=== PATIENT | female | born 1990 | race American Indian/Alaskan Native ===

== ENCOUNTER 2017-09-02 09:45 | Emergency (ER) | payer SELFPAY ==
[2017-09-02 10:21] VITALS: BP 102/67
== END 2017-09-02 10:45 | disposition left against medical advice (07) ==
LOC: ED 09:45
DX: R04.2 Hemoptysis (principal); Z53.21 Procedure and treatment not carried out due to patient leaving prior to being seen by health care provider

== ENCOUNTER 2017-09-14 21:00 | Outpatient (CLI) | payer MEDICAID ==
[2017-09-15 00:15] VITALS: BP 110/69
== END 2017-09-14 22:04 | disposition home or self-care (01) ==
LOC: TRG 21:00
PROVIDERS: ATTEND Obstetrics & Gynecology
DX: O47.1 False labor at or after 37 completed weeks of gestation (principal); Z3A.38 38 weeks gestation of pregnancy
CPT/HCPCS: 59025

== ENCOUNTER 2017-09-27 00:50 | Inpatient (IN) | payer MEDICAID ==
[2017-09-27] MEDS ORDERED: LACTATED RINGERS 1,000 ML ONE (01:40)
[2017-09-27] MEDS ORDERED: ePHEDrine SULFATE IV PRN (02:05)
[2017-09-27] MEDS ORDERED: MINERAL OIL PO PRN (02:05)
[2017-09-27] MEDS ORDERED: STADOL IV PRN (02:05)
[2017-09-27] MEDS ORDERED: NARCAN 0.4 MG/1 ML IV PRN (02:05)
[2017-09-27] MEDS ORDERED: XYLOCAINE 2% INFILTRATI ONE (02:05)
[2017-09-27] MEDS ORDERED: BRETHINE IVP PRN (02:05)
[2017-09-27] MEDS ORDERED: BRETHINE SUB-Q PRN (02:05)
[2017-09-27] MEDS ORDERED: POLYCILLIN/NS 2 GM/100 ML 2 GM/100 ML BAG IV ONE ×2 (02:05→02:23)
[2017-09-27] MEDS ORDERED: ZOFRAN IV PRN ×2 (02:05→03:52)
[2017-09-27] MEDS ORDERED: SUBLIMAZE IV PRN (02:05)
[2017-09-27] MEDS ORDERED: STADOL ONE (02:06)
--- NOTE | 2017-09-27 02:12 | History and Physical Report ---
History of Present Illness Date of examination: 09/27/17 Date of admission: 09/27/17 01:20 Chief complaint: Labor History of present illness: Pt is a 26yo BF EDC 09/28/17; EGA 39 6/7 weeks presents to L&D complaining of RUC's. She received care with Rajni Whitman CNM, however records are not available and GBS is unknown. Past History Past Medical History: no pertinent history Past Surgical History: no surgical history [employer] History: fibroids Social history: no significant social history, single - Obstetrical History Expected Date of Delivery: 09/28/17 Actual Gestation: 39 Week(s) 6 Day(s) : 4 Medications and Allergies Allergies Allergy/AdvReac Type Severity Reaction Status Date / Time No Known Allergies Allergy Verified 02/07/13 00:50 Home Medications Medication Instructions Recorded Confirmed Last Taken Type No Known Home Medications [No 09/14/17 09/14/17 Unknown History Reported Home Medications] Active Meds: Active Medications Butorphanol Tartrate (Stadol) 2 mg IV Q2H PRN PRN Reason: Pain , Severe (7-10) Ephedrine Sulfate (Ephedrine Sulfate) 10 mg IV Q2M PRN PRN Reason: Hypotension Fentanyl (Sublimaze) 100 mcg IV Q2H PRN PRN Reason: Labor Pain Ampicillin Sodium (Ampicillin/Ns 1 Gm/50 Ml) 1 gm in 50 mls @ 100 mls/hr IV Q4HR JAREK; Protocol Ampicillin Sodium (Polycillin/Ns 2 Gm/100 Ml) 2 gm in 100 mls @ 100 mls/hr IV ONCE ONE; Protocol Stop: 09/27/17 03:04 Lactated Ringer's (Lactated Ringers) 1,000 mls @ 125 mls/hr IV DIRECT JAREK Oxytocin/Sodium Chloride (Pitocin/Ns 20 Unit/1000ml Drip) 20 units in 1,000 mls @ 125 mls/hr IV DIRECT JAREK Oxytocin/Sodium Chloride (Pitocin/Ns 30 Unit/500ml) 30 units in 500 mls @ 4 mls /hr IV TITR JAREK; Protocol Oxytocin/Sodium Chloride (Pitocin/Ns 30 Unit/500ml) 30 units in 500 mls @ 1 mls /hr IV TITR JAREK; Protocol Lidocaine (Xylocaine 2%) 20 ml INFILTRATI ONCE ONE Stop: 09/27/17 02:06 Mineral Oil (Mineral Oil) 30 ml PO QHS PRN PRN Reason: Constipation Naloxone HCl (Narcan 0.4 Mg/1 Ml) 0.1 mg IV Q2MIN PRN PRN Reason: Res Rate </= 8 or 02 SAT < 92% Ondansetron HCl (Zofran) 4 mg IV Q8H PRN PRN Reason: Nausea And Vomiting Terbutaline Sulfate (Brethine) 0.25 mg SUB-Q ONCE PRN PRN Reason: Hyperstimulation/Hypertonicity Terbutaline Sulfate (Brethine) 0.25 mg IVP ONCE PRN PRN Reason: Hyperstimulation/Hypertonicity Review of Systems All systems: negative - Physical Exam Breasts: Positive: deferred Cardiovascular: Regular rate Lungs: Positive: Clear to auscultation Abdomen: Positive: normal appearance Genitourinary (Female): Positive: normal external genitalia Uterus: Positive: enlarged Extremities: Positive: normal - Obstetrical FHR: category 1 Uterine Contraction Monitor Mode: External Cervical Dilatation: 4 Cervical Effacement Percentage: 70 station: -2 Uterine Contraction Pattern: Regular Uterine Tone Measurement Phase: Contraction Uterine Contraction Intensity: Strong/Firm Results Result Diagrams: 09/27/17 00:55 All other labs normal. Assessment and Plan A: IUP @ 39 6/7 weeks in labor Unknown GBS P: Admit to L&D for expectant vaginal delivery IV Ampicillin Obtain records in the morning. - Patient Problems (1) 39 weeks gestation of Current Visit: Yes Status: Acute
[2017-09-27 02:51] LABS: Hemoglobin 9.8 gm/dl (10.1-14.3); Mean Corpuscular HGB Conc 34 % (30-34); Mean Corpuscular Hemoglobin 27 pg (28-32); Mean Corpuscular Volume 81 fl (79-97); Platelet Count 354 K/mm3 (140-440); Red Blood Count 3.59 M/mm3 (3.65-5.03); Red Cell Distribution Width 15.1 % (13.2-15.2)
[2017-09-27 02:58] LABS: Amphetamine Screen,Urine PRESUMPTIVE NEGATIVE; Benzodiazepines Screen,Urine PRESUMPTIVE NEGATIVE; Cannabinoid Screen,Urine PRESUMPTIVE NEGATIVE; Cocaine Screen,Urine PRESUMPTIVE NEGATIVE; Methadone Screen,Urine PRESUMPTIVE NEGATIVE; Opiate Screen,Urine PRESUMPTIVE NEGATIVE
[2017-09-27] MEDS ORDERED: LACTATED RINGERS 1,000 ML IV SCH (03:00)
[2017-09-27] MEDS ORDERED: PITOCin/NS 30 UNIT/500ML 30 UNITS/500 ML BAG IV SCH ×2 (03:00)
[2017-09-27] MEDS ORDERED: PITOCin/NS 20 UNIT/1000ML DRIP 20 UNITS/1,000 ML BAG IV SCH ×2 (03:00→04:00)
--- NOTE | 2017-09-27 03:51 | Procedure Note ---
OB Delivery Note - Delivery Date of Delivery: 09/27/17 Surgeon: MERNA TRAN Estimated blood loss: 100cc - Vaginal Delivery presentation: vertex Delivery position: OA Intrapartum events: meconium Delivery induction: none Delivery augmentation: rupture of membranes Delivery monitor: external FHT, external uterine Route of delivery: Delivery placenta: spontaneous Delivery cord: 3 umbilical vessels Episiotomy: none Delivery laceration: none Anesthesia: none Delivery comments: Infant delivered OA and placed on Mom's chest for [id number] bonding and delayed cord clamping - A at 1 minute: 8 at 5 minutes: 9 Gender: Male (3000gms)
[2017-09-27] MEDS ORDERED: NORCO 5/325 PO PRN (03:52)
[2017-09-27] MEDS ORDERED: DULCOLAX PR PRN (03:52)
[2017-09-27] MEDS ORDERED: PHENERGAN PO PRN (03:52)
[2017-09-27] MEDS ORDERED: TUCKS PAD TP PRN (03:52)
[2017-09-27] MEDS ORDERED: MILK OF MAGNESIA PO PRN (03:52)
[2017-09-27] MEDS ORDERED: PHENERGAN PR PRN (03:52)
[2017-09-27] MEDS ORDERED: LANSINOH TP PRN (03:52)
[2017-09-27] MEDS ORDERED: TYLENOL PO PRN (03:52)
[2017-09-27] MEDS ORDERED: BENADRYL PO PRN (03:52)
[2017-09-27] MEDS ORDERED: SODIUM CHLORIDE FLUSH SYRINGE 10 ML IV PRN (04:00)
[2017-09-27] MEDS ORDERED: AMPICILLIN/NS 1 GM/50 ML 1 GM/50 ML BAG IV SCH (06:07)
[2017-09-27] MEDS: MOTRIN PO SCH ×3 (06:20→18:11)
[2017-09-27] MEDS: PRENATAL VITAMIN PO SCH (11:57)
[2017-09-27] MEDS: FEOSOL PO SCH ×2 (11:57→21:40)
[2017-09-27 16:06] LABS: Hematocrit 26.1 % (30.3-42.9); Hemoglobin 8.5 gm/dl (10.1-14.3)
[2017-09-27] MEDS: COLACE PO SCH (21:40)
[2017-09-28] MEDS: MOTRIN PO SCH ×3 (00:10→18:55)
[2017-09-28] MEDS ORDERED: M-M-R II VACCINE SUB-Q ONE (03:52)
[2017-09-28] MEDS ORDERED: BOOSTRIX IM ONE (06:00)
--- NOTE | 2017-09-28 09:34 | Progress Note ---
Assessment and Plan - Patient Problems (1) 39 weeks gestation of Onset Date: 09/28/17 Current Visit: Yes Status: Resolved (2) (normal spontaneous vaginal delivery) Onset Date: 09/28/17 Current Visit: Yes Status: Resolved Plan to address problem: A: s/p - PPD #1 Doping well Asymptomatic anemia - stable P: May go home tomorrow. Subjective - Subjective Date of service: 09/28/17 Principal diagnosis: s/p - PPD #1 Interval history: Pt is feeling well without complaints. Bleeding improved. Patient reports: appetite normal, voiding normally, pain well controlled, flatus , ambulating normally, no dizzy ambulation, no nauseated : doing well, nursing well, bottle feeding Objective - Vital Signs Latest vital signs: Vital Signs Temp Pulse Resp BP BP Pulse Ox 09/28/17 07:42 98.4 F 57 L 20 95/55 98 09/27/17 23:55 97.8 F 59 L 20 99/56 99 09/27/17 17:59 98.4 F 61 18 101/51 Intake and Output 09/27/17 09/28/17 09/28/17 22:59 06:59 14:59 Intake Total 600 240 Balance 600 240 Intake: Oral 600 240 Other: Total, Intake Amount 240 240 # Voids Void 1 1 - Exam Breasts: Present: deferred Cardiovascular: Present: Regular rate Lungs: Present: Clear to auscultation Abdomen: Present: normal appearance, soft Uterus: Present: normal, firm, fundal height below umbilicus Extremities: Present: normal - Labs Labs: Abnormal lab results 09/27/17 Range/Units 15:47 Hgb 8.5 L (10.1-14.3) gm/dl Hct 26.1 L (30.3-42.9) % Laboratory Tests 09/27/17 09/27/17 09/27/17 00:55 00:55 00:55 WBC 6.9 RBC 3.59 L Hgb 9.8 L Hct 29.0 L MCV 81 MCH 27 L MCHC 34 RDW 15.1 Plt Count 354 Sickle Cell Screen Negative Urine Opiates Screen Urine Methadone Screen Ur Barbiturates Screen Ur Phencyclidine Scrn Ur Amphetamines Screen U Benzodiazepines Scrn Urine Cocaine Screen U Marijuana (THC) Screen Drugs of Abuse Note RPR Nonreactive Hep Bs Antigen HIV 1&2 Antibody Rapid HIV P24 Antigen Rubella IgG Antibody Blood Type O POSITIVE Antibody Screen Negative 09/27/17 09/27/17 09/27/17 00:55 00:55 00:55 WBC RBC Hgb Hct MCV MCH MCHC RDW Plt Count Sickle Cell Screen Urine Opiates Screen Urine Methadone Screen Ur Barbiturates Screen Ur Phencyclidine Scrn Ur Amphetamines Screen U Benzodiazepines Scrn Urine Cocaine Screen U Marijuana (THC) Screen Drugs of Abuse Note RPR Hep Bs Antigen Non-reactive HIV 1&2 Antibody Rapid Non react HIV P24 Antigen Non react Rubella IgG Antibody Immune Blood Type Antibody Screen 09/27/17 09/27/17 02:10 15:47 WBC RBC Hgb 8.5 L Hct 26.1 L MCV MCH MCHC RDW Plt Count Sickle Cell Screen Urine Opiates Screen Presumptive negative Urine Methadone Screen Presumptive negative Ur Barbiturates Screen Presumptive negative Ur Phencyclidine Scrn Presumptive negative Ur Amphetamines Screen Presumptive negative U Benzodiazepines Scrn Presumptive negative Urine Cocaine Screen Presumptive negative U Marijuana (THC) Screen Presumptive negative Drugs of Abuse Note Disclamer RPR Hep Bs Antigen HIV 1&2 Antibody Rapid HIV P24 Antigen Rubella IgG Antibody Blood Type Antibody Screen
--- NOTE | 2017-09-28 09:56 | Discharge Summary ---
Providers - Providers Date of Admission: 09/27/17 01:20 Date of discharge: 09/29/17 Attending physician: MERNA TRAN Primary care physician: LICENSING DIRECTOR Hospitalization Reason for admission: active labor, IUP at term Delivery: Episiotomy: none Laceration: none Other procedures: none complications: none, pelvic infection [place] baby: male Hospital course: Unremarkable. Condition at discharge: Good Disposition: DC-01 TO HOME OR SELFCARE - Discharge Diagnoses (1) 39 weeks gestation of Status: Resolved (2) (normal spontaneous vaginal delivery) Status: Resolved Plan - Discharge Medications Prescriptions: Ferrous Sulfate [Feosol 325 MG tab] 325 mg PO BID #60 tablet Ibuprofen [Motrin 600 MG tab] 600 mg PO Q6HR #30 tablet Vit-Fe Fumar-FA [ Vitamin] 1 each PO QDAY #30 tablet - Provider Discharge Summary Activity: routine, no sex for 6 weeks, no heavy lifting 4 weeks, no strenuous exercise Diet: routine Instructions: routine Additional instructions: [] Smoking cessation referral if applicable(refer to patient education folder for contact #) [] Refer to [facility]'s [facility] Booklet Call your doctor immediately for: * Fever > 100.5 * Heavy vaginal bleeding ( >1 pad per hour) * Severe persistent headache * Shortness of breath * Reddened, hot, painful area to leg or breast * Drainage or odor from incision. * Keep incision clean and dry at all times and follow doctor's instructions regarding bathing/showering - Follow up plan Follow up: TONY GARCIA MD [Primary Care Provider] - 7 Days MERNA TRAN MD [Staff Physician] - 6 Weeks
[2017-09-28] MEDS: FEOSOL PO SCH (10:15)
[2017-09-28] MEDS: COLACE PO SCH (10:15)
[2017-09-28] MEDS: PRENATAL VITAMIN PO SCH (10:15)
[2017-09-29] MEDS: COLACE PO SCH ×3 (00:03→10:00)
[2017-09-29] MEDS: FEOSOL PO SCH ×3 (00:03→10:00)
[2017-09-29] MEDS: MOTRIN PO SCH ×4 (00:04→12:00)
[2017-09-29] MEDS ORDERED: DEPO-PROVERA (CONTRACEPTION) IM NR (09:14)
[2017-09-29] MEDS: PRENATAL VITAMIN PO SCH (10:00)
[2017-09-29 11:58] VITALS: BP 103/72
== END 2017-09-29 12:25 | disposition home or self-care (01) | DRG 774 ==
LOC: TRG 00:50 → LD 01:20 → OB 06:09
PROVIDERS: ADMIT Obstetrics & Gynecology; ATTEND Obstetrics & Gynecology
PROC: 10E0XZZ Delivery of Products of Conception, External Approach (ICD-10-PCS; principal; 2017-09-27)
PROC: 3E0234Z Introduction of Serum, Toxoid and Vaccine into Muscle, Percutaneous Approach (ICD-10-PCS; 2017-09-28)
DX: O77.0 Labor and delivery complicated by meconium in amniotic fluid (principal); O86.89 Other specified puerperal infections; Z3A.39 39 weeks gestation of pregnancy; Z37.0 Single live birth; Z23 Encounter for immunization; O90.81 Anemia of the puerperium; D64.9 Anemia, unspecified
CPT/HCPCS: 36415; 80307; 85014; 85018; 85027; 85660; 86592; 86706; 86762; 86850; 86900; 86901; 87806; 88307; J0290; J0595; J1050; J2590; J7120